=== PATIENT | female | born 1960 | race Caucasian/White ===

== ENCOUNTER → 2017-04-15 | Outpatient (CLI) | payer OTHER ==
[~2017-04-15] MED LIST: BARIUM SULFATE 135 ML (E-Z HD) PO ONE
--- NOTE | 2017-04-15 14:45 | RADRPT ---
PROCEDURE: Small bowel follow-through. CLINICAL INDICATION: Abdomen pain. TECHNIQUE: Barium was administered orally and several spot and overhead radiographs of the abdomen were obtained. COMPARISON: None. FINDINGS: The preliminary radiograph is normal. There is no small bowel displacement or mass. The small bowel folds are normal. There is no evidence of obstruction. Transit time is normal with contrast in the colon at 1.5 hours. Spot views of the terminal ileum are unremarkable with no mass or other abnormality. IMPRESSION: 1. Normal small bowel follow-through. RPTAT: QQ .Wood Conklin MD, Date Time Electronically viewed and signed by .Wood Conklin MD, on 04/15/2017 14:45 .R/
== END | disposition home or self-care (01) ==
LOC: RAD 08:41
PROVIDERS: ATTEND Internal Medicine
DX: R10.9 Unspecified abdominal pain (principal)
CPT/HCPCS: 74250

== ENCOUNTER → 2018-08-08 | Outpatient (CLI) | END | disposition home or self-care (01) ==

== ENCOUNTER → 2018-09-05 | Outpatient (CLI) | END | disposition home or self-care (01) ==

== ENCOUNTER → 2018-10-06 | Outpatient (CLI) | payer OTHER ==
--- NOTE | 2018-10-06 12:00 | CONS ---
Date/Time of Note Date/Time of Note DATE: 10/06/18 TIME: 11:51 Consult Date/Type/Reason Admit Date/Time Initial Consult Date Subjective This is a 58-year-old female following up 8 weeks status post severe ankle sprain. She has been treated in a boot for immobilization as the sprain was severe. 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 Her pain is significantly better. She started physical therapy 2 weeks ago as instructed. She is eager to return back to work. Denies any other complaints. Objective Weight: 180 pounds Height: 5 foot Temperature: 90.0 Heart Rate: 86 Blood Pressure: 126/69 Respiratory Rate: 10 Exam General: Awake, alert, in no acute distress, pleasant and cooperative Heart: regular rhythm Lungs: breathing comfortably, no tachypnea or dyspnea Musculoskeletal:Left lower extremity: There is no swelling over the lateral aspect of the ankle. The previous ecchymosis has resolved. Skin is intact. Minimal tenderness to palpation over the ATFL and CFL. There is some mild laxity with anterior drawer but with firm endpoint. Mild pain with anterior drawer. Minimal tenderness to palpation over the medial aspect of the ankle. Patient does not have any pain along the proximal fibula. Patient has near full range of motion of the ankle. Sensations intact light touch to superficial peroneal nerve, deep peroneal nerve, sural nerve, saphenous nerve, and plantar nerves. Motor is intact to the gastrocnemius, tibialis anterior, EHL, FHL. 2+ DP pulse. Assessment/Plan Chief Complaint/Hosp Course This is a 58-year-old female 8 weeks status post severe left ankle sprain. She has been doing well with physical therapy. She is bearing full weight with no limp. She is feeling much better. I am recommending that she continue to use a Lace up ankle brace for continued support to prevent reinjury while she is in physical therapy. She should probably continue to wear this lace up ankle brace while participating in physical activities such as hiking, running, sports. She can return to work without limitation as the lace up ankle brace can be worn in a standard shoe and underpants. Follow-up BRAYAN MI MD Oct 06, 2018 12:00
== END | disposition home or self-care (01) ==
LOC: HKI 08:59
PROVIDERS: ATTEND Orthopaedic Surgery Adult Reconstructive Orthopaedic Surgery
DX: M25.572 Pain in left ankle and joints of left foot (principal); X58.XXXA Exposure to other specified factors, initial encounter; Y92.89 Other specified places as the place of occurrence of the external cause
CPT/HCPCS: G0463